=== PATIENT | male | born 1990 | race Caucasian/White ===

== ENCOUNTER 2024-10-20 06:21 | Day surgery (SDC) | payer BC, SELFPAY | END 2024-10-20 13:08 | disposition home or self-care (01) | LOC: GI 06:21 | PROVIDERS: ATTENDING PHYSICIAN Internal Medicine | DX: R10.13 Epigastric pain (principal); K44.9 Diaphragmatic hernia without obstruction or gangrene; K31.89 Other diseases of stomach and duodenum; K29.60 Other gastritis without bleeding | CPT/HCPCS: 43239; 88305; 88342 ==